=== PATIENT | female | born 1950 | race Caucasian/White ===

== ENCOUNTER → 2016-07-05 | Day surgery (SDC) | payer MEDICARE ==
[~2016-07-05] MED LIST: 0.9% Sodium Chloride 1,000 ML IV SCH; AMLO5TAB2 PO; ASPI-973 PO; ESTR1PAT80 TRANSDERM; GABA-502 PO; IBUP200C PO; LOSA100T29 PO; Ondansetron 2 mg/mL 2 mL Inj ONE; PRAV10TA2 PO; Sodium Chloride LOK Flush 10 mL Syringe IV PRN; fentaNYL-PF 50 mCg/mL 2 mL Inj IVPUSH PRN
[2016-07-05 09:45] VITALS: BP 137/81; PULSE 89; RESP 16; O2SAT 100
[2016-07-05 10:35] VITALS: BP 133/73; PULSE 78; RESP 14; O2SAT 97
[2016-07-05 10:49] VITALS: BP 135/75; PULSE 72; RESP 14; O2SAT 97
[2016-07-05 10:54] VITALS: BP 129/69; PULSE 80; RESP 14; O2SAT 100
--- NOTE | 2016-07-05 21:46 | ENDO ---
[address] [address] ENDOSCOPY PROCEDURE PATIENT: AUREA CARRERO : 1950 MR#: [id number] ADMIT: 07/05/2016 JOB ID: [id number] DATE OF PROCEDURE: 07/05/2013 PRIMARY PROVIDER: Seferino Hammer MD. PROCEDURE: Colonoscopy. INDICATIONS: A 66-year-old female who reports for colon cancer screening. EQUIPMENT: [employer]. SEDATION: 1. Versed 5 mg. 2. Fentanyl 100 mcg. COMPLICATIONS: None identified. BOWEL PREPARATION: Excellent. PROCEDURE INFORMATION: After the risks and benefits were explained, written and verbal informed consent was obtained. The patient was brought into the endoscopy suite and placed into the left lateral decubitus position. Sedation was achieved as above. A digital rectal examination accomplished. Mild internal external nonbleeding, nonthrombosed hemorrhoids were noted. The scope was introduced into the rectum and advanced under direct visualization to the level of the cecum, as identified by the appendiceal orifice and ileocecal valve. The scope was slowly withdrawn to carefully examine the mucosa for any defects or lesions. Retroflexed views were avoided in the rectum. Multiple direct views were made through the dentate line for exclusion of pathology. The colon was decompressed. The scope was removed from the patient who tolerated the procedure well. FINDINGS: Mildly twisty left colon. No significant polyps, mass lesions, or inflammatory features identified throughout. The terminal ileum was briefly interrogated and appeared visually normal. ENDOSCOPIC DIAGNOSES: Visually unremarkable colonoscopy to cecum. RECOMMENDATIONS: 1. The patient has recently reported an element of change in bowel habit mainly characterized by incomplete evacuation of smaller volume firm stools. I simply recommended fiber supplementation with 2 tablespoons ground flaxseed fiber mixed with 8 ounces of water or juice or the medium of her choice to facilitate a more complete evacuation and bowel regularity. 2. Repeat colonoscopy in 10 years' time, sooner should symptoms warrant.
== END | disposition home or self-care (01) ==
LOC: END 00:27
PROVIDERS: ATTEND Internal Medicine Gastroenterology
DX: Z12.11 Encounter for screening for malignant neoplasm of colon (principal); K64.4 Residual hemorrhoidal skin tags; K64.8 Other hemorrhoids; I10 Essential (primary) hypertension
CPT/HCPCS: 99153; G0121; G0500; J2250; J3010; J7030

== ENCOUNTER 2016-10-13 16:40 | Emergency (ER) | payer OTHER, MEDICARE ==
[~2016-10-13 16:40] MED LIST changes: -0.9% Sodium Chloride 1,000 ML IV SCH; -Ondansetron 2 mg/mL 2 mL Inj ONE; -Sodium Chloride LOK Flush 10 mL Syringe IV PRN; -fentaNYL-PF 50 mCg/mL 2 mL Inj IVPUSH PRN
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
[2016-10-13 18:48] VITALS: BP 179/90; PULSE 79; RESP 14; O2SAT 99
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
[2016-10-13 19:12] VITALS: BP 179/90; PULSE 79; RESP 14; O2SAT 99
== END 2016-10-13 19:13 | disposition home or self-care (01) ==
LOC: EDUNIT# 16:40 → SED 16:40 → EDBD 16:40 → SED 19:13
DX: S16.1XXA Strain of muscle, fascia and tendon at neck level, initial encounter (principal); S20.212A Contusion of left front wall of thorax, initial encounter; S90.811A Abrasion, right foot, initial encounter; V43.52XA Car driver injured in collision with other type car in traffic accident, initial encounter; Y93.89 Activity, other specified; Y92.410 Unspecified street and highway as the place of occurrence of the external cause; Y99.8 Other external cause status; Z79.82 Long term (current) use of aspirin

== ENCOUNTER → 2017-01-11 | Day surgery (SDC) | payer MEDICARE ==
--- NOTE | 2017-01-10 17:30 | PCM.HPANE ---
Patient Data Surgeon Admitting Provider: Attending Provider:Trever Ruggiero MD Primary Care Physician:Seferino Hammer MD Other Provider:Radha [place] Anesthesia Reason for Visit Post Menopausal Bleeding, Endometrial Thickening Ht/WT & BMI Height (Feet): 5 Height (Inches): 0 Weight (Kilograms): 69.31 Body Mass Index 29.00 Allergies Coded Allergies: No Known Allergies (Verified , 01/04/17) Past Anesthesia History Anesthesia History: Positive for:: Anesthesia Reactions (Nausea with pain meds) , Denies:: Abnormal Airway, Difficult Intubation, Fam Anesthesia Reaction Diabetes History Hx Diabetes?: No MRSA MRSA: Yes Medications Blood Thinner: Aspirin Hypertension Medication: Yes Home Meds Incl Beta Kalyani: No Reported Medications Ibuprofen 200 Mg [id number] Mg PO QID PRN For Pain Ref 0 07/02/16 Pravastatin 10 Mg [id number] Mg PO HS Ref 0 07/02/16 Losartan Potassium 100 Mg [id number] Mg PO DAILY 07/02/16 Gabapentin 300 Mg [id number] Mg PO BID Ref 0 07/02/16 Estradiol 0.025 mg/24 hr Patch 1 Each Patch.tdwk1 Patch TRANSDERM BI-WEEKLY Ref 0 07/02/16 Aspirin 81 Mg [id number] Mg PO DAILY Ref 0 07/02/16 Amlodipine 5 Mg Tablet5 Mg PO DAILY Ref 0 07/02/16 History History of ENT Problems?: No HEENT History: Denies:: Abnormal Airway Cataracts Difficult Intubation Dysphagia Glaucoma Hearing Problem Sinus Problem TMJ Denture Type: None Teeth Condition: Within Normal Limits Hx of Heart Problems?: Yes Cardiovascular History: Positive for:: Hypertension (on Losartan) Denies:: AICD Abdominal Aortic Aneurism Atrial Fibrillation Chest Pain Congestive Heart Failure Heart Murmur Irregular Heartbeat Pacemaker Peripheral Vascular Rheumatic Fever Hx of Respiratory Problem?: No Respiratory History: Denies:: Asthma COPD Emphysema Oxygen Administration Pneumonia Tuberculosis Use of C-PAP Machine Hx Neurologic Problems?: No Neurological History: Denies:: CVA Headaches (not for past few years- hx of ) Multiple Sclerosis Parkinson's Disease Seizures Hx of GI Problems?: No Hx of Problems?: No Genitourinary History: Denies:: Kidney Stones Urinary Tract Infection Female Hx: Positive for:: Problems with Breasts? (hx of breast augmentation) Denies:: Currently Skin History: Denies:: History Skin Disorders? Pressure Ulcers Hx Musculoskeletal Problems?: Yes Musculoskeletal History: Denies:: Fibromyalgia Joint Replacement Musculoskeletal Trauma Myasthenia Gravis Osteoarthritis Rheumatoid Arthritis Other History/Comment back surgery-2013 Hx of Psycho/Social Problems?: No Psycho Social History: Denies:: Anxiety Hx Depression Hx Surgeries?: Yes (Appy, breast augmentation, diverticulitis-hospitalized, lumbar laminectomy,) Hx Any Other Health Problems?: Yes Other History: Denies:: Cancer Thyroid Disease History Blood Transfusions: Positive for:: Accept Blood Products? Denies:: Blood Transfusions Hx Diabetes: No Hx Alcohol Use: Yes (2 drinks a week)Alcoholic Drinks Per Day: 1 drink weekly Hx Substance Use: No Smoking Status: Unknown if Ever Smoker Stop/Bang Treated for Sleep Apnea?: No Do You Have a CPAP Machine?: No S-Snoring: Do You Snore Loudly: No T-Tired: feel tired, fatigued: No O-Obsered: Observed not breath: No P-Blood Pressure: treated: Yes B- Body Mass Index > 35 kg/m2: No A- Age over 50: Yes N- Neck Large Circumference: No G- Gender Male: No LUIS ALFREDO Total Score: 2 LUIS ALFREDO Risk Assessment: Low Risk, <3 Yes Risk Assessment Category Category 1A: Patient has history of documented sleep apnea, and HAS NOT received any narcotic, sedative or anesthesia administration during this stay. Category 1B: Patient has history of documented sleep apnea, and HAS received any narcotic , sedative or anesthesia administration during this stay Category 2: Patient has SUSPECTED Obstructive Sleep Apnea, and HAS received any narcotic , sedative or anesthesia administration during this stay. Category 3: Patient has SUSPECTED Obstructive Sleep Apnea and HAS NOT received narcotic, sedative or anesthesia administration during this stay. Category 4: Outpatient in Procedural Areas with known sleep apnea or who screen positive for High Risk via the STOP/BANG questionnaire. Exam Exam General Appearance: Alert HEENT/AIRWAY: MP 1 Lungs: Clear to Auscultation Heart: Exam Unremarkable Plan Impression Patient chart reviewed, patient interviewed and anesthestic plan with risks, benefits, and alternatives discussed, and informed consent obtained. NPO per Anesth. Guidelines: Yes ASA Physical Status: ASA2 Mod Systemic Disease Anesthetic Plan: GA Bene/Risks/Altern/Consents: Yes HP Complete Prior to Induction: Yes Indu Seth MD Jan 10, 2017 17:30
[~2017-01-11] VITALS: Ht 160 cm; Wt 69.1 kg
[2017-01-11] VITALS (8 sets, daily range): BP systolic 135–159; BP diastolic 67–83; PULSE 61–80; RESP 12–19; O2SAT 98–100
[~2017-01-11] MED LIST changes: +Dexamethasone 4 mg/mL Inj IVPUSH PRN; +Dexamethasone 4 mg/mL Inj ONE; +EPHEDrine Sulfate 50 mg/mL Inj IVPUSH PRN; +HYDROcodone-APAP 5-325 mg Tablet PO PRN; +HYDROmorphone 1 mg/mL Inj IVPUSH PRN; +Ketorolac 15 mg/mL Inj IVPUSH PRN; +Lactated Ringer's 1,000 ML IV ONE; +Lactated Ringer's 1,000 ML IV SCH; +Lactated Ringer's 500 ML IV PRN; +MetoCLOpramide 5 mg/mL 2 mL Inj IVPUSH PRN; +Ondansetron 2 mg/mL 2 mL Inj IVPUSH PRN; +Ondansetron 2 mg/mL 2 mL Inj ONE; +Phenylephrine 10,000 mCg/mL Inj IVPUSH PRN; +Propofol 10,000 mCg/mL 20 mL Inj ONE; +fentaNYL-PF 50 mCg/mL 2 mL Inj IVPUSH PRN; +fentaNYL-PF 50 mCg/mL 2 mL Inj ONE; +hydrOXYzine Inj 50 MG/1 mL SDV IM PRN
--- NOTE | 2017-01-11 07:03 | HP PRE OP ---
[address] [address] PREOPERATIVE HISTORY AND PHYSICAL PATIENT: AUREA CARRERO : 1950 MR#: [id number] ADMIT: 01/11/2017 JOB ID: [id number] IDENTIFICATION: The patient is a 66-year-old, G2, P2, AB 0, woman. CHIEF COMPLAINT: Postmenopausal bleeding and thickened endometrium, for surgical investigation. HISTORY OF PRESENT ILLNESS: This patient for years used estrogen patch twice weekly plus Prometrium plus gabapentin for menopausal symptom management. However, she ultimately stopped the Prometrium about a year ago. She has had 4-5 years of intermittent postmenopausal bleeding, tracked per AMANDO Ramirez, typically with normal sonograms of the endometrium reported. Neda Sheikh would stopped progesterone briefly for a few months and then restart it while continuing on the estrogen. About a year ago however, when bleeding resumed again, progesterone was discontinued and bleeding stopped. However, while using estrogen only in August 2016, bleeding started again and this time nurse practitioner initiated medroxyprogesterone course which stopped bleeding, but then bleeding recurred and medroxyprogesterone was given on and off subsequently. Ultimately, patient was sent to my office for evaluation of the postmenopausal bleeding while using estrogen only primarily during the past year, with progesterone use in the past and recent medroxyprogesterone on and off only in an effort to stop bleeding. Ultrasounds in August 2016 reportedly demonstrated thin endometrium, yet in September 2016 suggested possible polyps, although remaining thin reportedly. I subsequently performed transvaginal sonography, and found endometrial thickness up to 1.37 cm, with some heterogeneity, with potential for endometrial polyp. There was also small anterior subserosal fibroid identified. Endometrial biopsy was not done, rather discussion with the patient resulted in decision for surgical investigation which is the reason for hospitalization on October 11, 2016. I have discussed with the patient the postmenopausal bleeding, thickened endometrial complex that is heterogeneous, with potential for polyp or other mass. We cannot guarantee that there is a polyp or other mass present; although, sonogram is suspicious for thickening. With bleeding that has continued to recur and sometimes heavy at times and with ultrasound findings as described, I have recommended operative hysteroscopy with visualization yet also removal of mass for example polyp if present, and also full fractional D and C. These procedures will thus have potential therapeutic, as well as diagnostic value. The patient has understood risks of surgery, to include bleeding, infection, potential injury to the cervical or uterine wall, anesthetic risks, etc. There are other potential surgical and medical risks as well, and there is not a guarantee of what we will find surgically or what we will be able to resolve. All questions have been answered, no guarantees have been stated or implied, and patient has signed informed consent for surgery. In summary, then, the patient will be admitted to [facility] on January 11, 2017, on which day she will undergo surgical procedures as described, i.e. operative hysteroscopy, possible polypectomy, and fractional D and C. PHYSICAL EXAMINATION ON ADMISSION: Weight 159 pounds. Blood pressure 124/78. Neck: No thyromegaly. Lungs: Clear to auscultation and percussion. Heart: Regular in rate and rhythm. Abdomen: Surgical scarring noted (prior appendectomy). Pelvic examination: Vulva, vagina and cervix estrogenized effect, little atrophy, no worrisome epithelial abnormalities. No obvious cervical or uterine abnormality on bimanual examination, nontender. DIAGNOSTIC DATA: Preoperative lab work demonstrated hemoglobin of 15.4, platelets 253, normal electrolytes, creatinine 0.77, glucose 87. Normal liver enzymes. Calcium slightly elevated at 10.6. EKG report to review prior to surgery, not available at the time of this dictation. IMPRESSION: 1. Postmenopausal bleeding, intermittent over a few years, ultimately referred to my office for evaluation. Cannot rule out endometrial polyp or other mass in light of increased endometrial thickness noted sonographically, for surgical investigation. 2. Primarily unopposed estrogen use during the past year prescribed elsewhere, for menopausal symptom control along with gabapentin for night sweats. See full history above. 3. Menopausal syndrome, using estrogen and gabapentin. 4. Surgical history: a. Vaginal delivery x2. b. Appendectomy. c. Lumbar laminectomy. d. Blepharoplasty. e. Tubal ligation. 5. Hypertension, using amlodipine 5 mg daily plus losartan. 6. Hypercholesterolemia, using pravastatin 10 mg daily. 7. Baby aspirin typically utilized daily; although, recommended cessation during the week prior to surgery. 8. History of headache disorder. 9. History of urinary tract infection. 10. No known drug allergies. 11. Family history of hypertension (siblings, parents), heart disease (father), stroke (parents), Alzheimer's (mother). PLAN: The patient will be admitted to [facility] on January 11, 2017, on which day she will undergo operative hysteroscopy, potential polypectomy, and fractional D and C, in the setting of postmenopausal bleeding that has occurred during the past few years, now with endometrial thickening and potential for polyp or other mass.
[2017-01-11] MEDS: Lactated Ringer's 1,000 ML IV SCH ×2 (08:45→10:15)
--- NOTE | 2017-01-11 13:40 | PCM.ANEP1 ---
Post Anesthesia PACU Phase 1 Assessment Vital Signs Vital Signs Date Time Temp Pulse Resp B/P Pulse Ox O2 Delivery O2 Flow Rate FiO2 01/11/17 12:48 61 16 144/71 100 Room Air 01/11/17 11:51 64 16 150/73 99 Room Air 01/11/17 11:40 67 15 156/67 98 Room Air 01/11/17 11:35 36.5 68 15 144/76 98 Room Air 01/11/17 11:30 72 12 152/83 99 Room Air 01/11/17 11:25 80 19 149/75 98 Room Air 01/11/17 11:21 36.6 69 12 159/80 100 Simple Mask 8 01/11/17 09:05 36.2 71 15 135/77 98 Room Air Anesthetic Administered: GA Level of Alertness: Awake, talking JONES's with Equal Strength: Yes Pain: No Nausea or Vomiting: No CV Function & Hydration Stable: Yes Airway Device: Oxygen Delivery: Simple Mask Lungs: Clear to Auscultation PACU Phase 2 Assessment Complications: No Follow up Care: No Patient Instructions Provided: Yes Indu Seth MD Jan 11, 2017 13:40
--- NOTE | 2017-01-12 08:15 | OP ---
[address] [address] OPERATIVE REPORT PATIENT: AUREA CARRERO : 1950 MR#: [id number] ADMIT: 01/11/2017 JOB ID: [id number] DATE OF SURGERY: 01/11/2017 SURGEON: Trever Ruggiero MD LINER INSTALLER: None. ANESTHESIA: General. PREOPERATIVE DIAGNOSIS(ES): 1. Postmenopausal bleeding. 2. Increased endometrial thickness, rule out endometrial polyp. POSTOPERATIVE DIAGNOSIS(ES): 1. Postmenopausal bleeding. 2. Increased endometrial thickness secondary to endometrial polyps. PROCEDURES PERFORMED: 1. Operative hysteroscopy. 2. Hysteroscopic polypectomies. 3. Fractional D and C. INDICATIONS FOR SURGERY: This patient has had postmenopausal bleeding on and off for some years. She has been followed by Neda Sheikh, advanced registered nurse-practitioner. She ultimately was referred to my office, and endometrial thickening was noted by ultrasound. Endometrial polyps were considered a possibility and thus the patient was scheduled for hysteroscopic assessment as well as treatment if in fact polyps identified. FINDINGS AT SURGERY: Upon hysteroscopic evaluation, there were noticed four polyps of the endometrium. One was elongated, yet thin, extending from the lower uterine segment into the upper to mid endocervical canal. The other three were located within the uterine cavity. All polyps were smooth on their surface and thus appeared benign. There was no endocervical or endometrial obvious change suggestive of premalignant or malignant condition. Of course, we will await the pathologist's assessment. At procedure's close, all polyps had been removed. There was no notable bleeding at any site, and it is anticipated that the pathology report will be benign and that the patient's postmenopausal bleeding will resolve with procedures as performed, time will tell. PROCEDURE IN DETAIL: The patient was placed in supine position on the operating table and general anesthesia was induced. She was then very carefully repositioned into the low dorsal lithotomy position and prepped and draped in the usual sterile manner. Appropriate time-out was taken. A weighted speculum was then placed posteriorly. A tenaculum on the anterior cervical lip and the uterus was sounded, followed by cervical dilatation up to 7 mm. MyoSure apparatus was then advanced into the uterine cavity through the cervix and hysteroscopic findings were as noted above. MyoSure was then used for hysteroscopic polypectomies, accomplished easily. There was no concerning bleeding, and there was no obvious submucous fibroid or worrisome endocervical or endometrial thickening. MyoSure apparatus was then removed and fractional D and C was accomplished. First, endocervical curettage was undertaken, followed by endometrial curettage, with specimens sent separately. Tenaculum was then removed from the cervix, and speculum from the vagina. All instruments and sponges were accounted for. The procedures were thus complete. ESTIMATED BLOOD LOSS: 10 cc. COMPLICATIONS: None. PROGNOSIS: Good for surgical recovery.
--- NOTE | 2017-01-14 09:51 | PATH ---
SURGICAL PATHOLOGY Attending Physician:Trever Ruggiero M.D CASE STATUS: Signed Out PATIENT NAME: AUREA CARRERO PID: [id number] : 1950 DATE COLLECTED:01/11/2017 22:09 SPECIMEN: 1: Endocervix, Curettage 2: Endometrium, Biopsy 3: Endometrium, Curettage CLINICAL HISTORY: POST MENOPAUSAL BLEEDING, ENDOMETRIAL THICKENING, ENDOMETRIAL POLYPS 1). ENDOCERVICAL CURETTINGS 2). ENDOMETRIAL POLYP FRAGMENTS 3). ENDOMETRIAL CURETTINGS FINAL DIAGNOSIS: 1.ENDOCERVICAL CURETTAGE: - FRAGMENTS OF SQUAMOUS MUCOSA AND ENDOCERVICAL MUCOSA WITH NO EVIDENCE OF DYSPLASIA AND MALIGNANCY. 2.ENDOMETRIAL POLYP FRAGMENTS, POLYPECTOMY: - MULTIPLE FRAGMENTS OF PROLIFERATIVE ENDOMETRIUM WITH FOCI OF SIMPLE HYPERPLASIA WITHOUT ATYPIA ANDFEATURES SUGGESTIVE OF ENDOMETRIAL POLYP. - NO EVIDENCE OF MALIGNANCY. 3.ENDOMETRIAL CURETTINGS: - FRAGMENTS OF PROLIFERATIVE ENDOMETRIUM WITH FOCI OF SIMPLE HYPERPLASIA WITHOUT ATYPIA. - NO EVIDENCE OF MALIGANCY. ICD10 N95.0 NOTE: As part of a routine quality auditor, parts 2 and 3 designated as endometrial polyp fragments and endometrial curettings were also reviewed by Dr. Latham, who agrees with the above interpretation. GROSS DESCRIPTION: The specimen is received in three formalin filled containers labeled with the patient's name. 1). The specimen is labeled "endocervical curettings" and consists of a less than 0.25 cc aggregate of mucoid material and blood which is filtered and entirely submitted in cassette 1A. 2). The specimen is labeled "in a neutral polyp fragments" and consists of approximately a 1.25 cc aggregate of tissue and mucoid material which is filtered and entirely submitted in cassette 2A. 3). The specimen is labeled "endometrial curetting" and consists of approximately a 1 cc aggregate of mucoid material and blood which is entirely submitted in cassette 3A. 01/11/2017DC MICRO DESCRIPTION: See diagnosis. ICD-9 CODES: CPT CODES: 1: 33007 2: 80978 3: 73402 Electronically Signed Out Lamont Manzano MD [facility] [place] [address] Technical component performed at [facility], [facility] [address], [address]
== END | disposition home or self-care (01) ==
LOC: SAS 08:34
PROVIDERS: ATTEND Obstetrics & Gynecology
DX: N95.0 Postmenopausal bleeding (principal); N84.0 Polyp of corpus uteri; N85.00 Endometrial hyperplasia, unspecified; I10 Essential (primary) hypertension; E78.5 Hyperlipidemia, unspecified; G62.9 Polyneuropathy, unspecified; M54.5 Low back pain; Z79.82 Long term (current) use of aspirin; Z86.14 Personal history of Methicillin resistant Staphylococcus aureus infection
CPT/HCPCS: 58558; J1100; J1885; J2405; J2704; J3010; J7120